=== PATIENT | female | born 1965 | race Caucasian/White ===

== ENCOUNTER 2022-12-07 13:50 | Outpatient (CLI) | payer BC | END 2022-12-07 13:51 | disposition home or self-care (01) | LOC: BICMAMMO 13:50 | PROVIDERS: ATTEND Family Medicine | DX: Z12.31 Encounter for screening mammogram for malignant neoplasm of breast (principal); N63.10 Unspecified lump in the right breast, unspecified quadrant; Z91.89 Other specified personal risk factors, not elsewhere classified; Z80.3 Family history of malignant neoplasm of breast | CPT/HCPCS: 77063; 77067 ==